=== PATIENT | female | born 1950 | race Caucasian/White ===

== ENCOUNTER → 2020-06-19 | Outpatient (CLI) | payer MEDICARE, OTHER ==
--- NOTE | 2020-06-20 09:45 | Diagnostic Imaging Report ---
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 TECHNIQUE: Serum blood glucose level at the time of injection is 98 mg/dL. Patient was administered 13.8 mCi F-18 FDG intravenously in the left antecubital location and PET imaging was performed from the top of skull to mid thighs. Noncontrast CT was also performed for attenuation correction and anatomic correlation. COMPARISON: No prior imaging is available for comparison. FINDINGS: There is symmetric activity throughout the brain. Soft tissues of the neck are unremarkable. Specifically, no uptake in the soft tissues of the nose are identified. No mediastinal or hilar hypermetabolism is identified. No pulmonary parenchymal hypermetabolism is identified. There appears to be physiologic activity throughout the gastrointestinal and genitourinary tracts of the abdomen and pelvis. No suspicious hypermetabolism is identified. IMPRESSION: Unremarkable PET/CT study. No suspicious regions of hypermetabolism are identified. Dictated by: Dictated on workstation # [id number]
== END ==
LOC: RAD 09:00
PROVIDERS: ATTEND Otolaryngology Otolaryngology/Facial Plastic Surgery
DX: C4A.31 Merkel cell carcinoma of nose (principal)
CPT/HCPCS: 78815; A9552

== ENCOUNTER → 2021-02-19 | Outpatient (CLI) | payer MEDICARE, OTHER ==
--- NOTE | 2021-02-19 13:09 | Diagnostic Imaging Report ---
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 TECHNIQUE: Serum blood glucose level at the time of injection is 111 mg/dL. Patient was administered 13.8 mCi F-18 FDG intravenously in the left antecubital location and PET imaging was performed from the top of the skull to mid thighs. Noncontrast CT was also performed for attenuation correction and anatomic correlation. COMPARISON: Correlation is made with prior PET/CT study from 06/19/2020. FINDINGS: There is symmetric activity throughout the brain. Soft tissues of the neck are unremarkable. No abnormal activity in the nasal cavity is identified. No mediastinal or hilar hypermetabolism is identified. No pulmonary parenchymal hypermetabolism is identified. There is physiologic activity throughout the GI and tracts of the abdomen and pelvis. 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 There is some increased uptake in the midline low pelvis which appears to correlate with the small bowel loop but no underlying abnormality is seen on the CT correlate. IMPRESSION: Stable PET/CT study when compared with exam from 06/19/2020. No suspicious regions of hypermetabolism are identified. Dictated by: Dictated on workstation # [id number]
== END ==
LOC: RAD 08:15
PROVIDERS: ATTEND Otolaryngology Otolaryngology/Facial Plastic Surgery
DX: C4A.31 Merkel cell carcinoma of nose (principal)
CPT/HCPCS: 78815; A9552

== ENCOUNTER → 2021-07-16 | Outpatient (CLI) | payer MEDICARE ==
--- NOTE | 2021-07-16 11:16 | Diagnostic Imaging Report ---
Right shoulder at 1012h. INDICATION: Shoulder pain 3 views were obtained. There are no prior studies available for comparison. There is no fracture, dislocation or acute bony abnormality evident. There is moderate narrowing of the glenohumeral joint and humeral head does seem slightly elevated with respect to the glenoid than usually seen. This appearance could be secondary to an injury to the rotator cuff. If further imaging is desired, then MRI would be recommended. There is only mild degenerative disease of the coracoclavicular joint. The soft tissues are unremarkable. IMPRESSION: 1. There is no evidence of acute bony abnormality. 2. There are degenerative changes involving the glenohumeral joint and the possibility that there is an injury to the rotator cuff should be considered. Recommendations as above. Dictated by: Dictated on workstation # [id number]
--- NOTE | 2021-07-16 11:17 | Diagnostic Imaging Report ---
Right knee at 1019h. INDICATION: Knee pain 4 views were obtained. There are no prior studies for comparison. There is no fracture, dislocation or acute bony abnormality evident. There is severe degenerative disease involving the medial compartment of the knee joint and fairly severe degenerative disease of the patellofemoral space. The lateral cartilage is well-maintained. The soft tissues are unremarkable. IMPRESSION: 1. There is no evidence of acute bony abnormality. 2. There is degenerative disease involving the knee joint with the medial compartment and the patellofemoral space the most significantly affected. Dictated by: Dictated on workstation # [id number]
== END ==
LOC: ORTHO 09:48
PROVIDERS: ATTEND Orthopaedic Surgery
DX: M19.011 Primary osteoarthritis, right shoulder (principal); M17.11 Unilateral primary osteoarthritis, right knee
CPT/HCPCS: 20610; 73030; 73564; G0463; 99213

== ENCOUNTER → 2021-07-25 | Outpatient (CLI) | payer MEDICARE ==
[~2021-07-25] MED LIST: CATHETER FLUSH 10 ML SYR IV PRN; HOLD METFORMIN - RECEIVED CONTRAST 20 ML VIAL IV SCH; IOHEXOL 350 MG/ML 100 ML (OMNIPAQUE 350) VIAL IV ONE; NS 100 ML (IVPB) BAG IV ONE
[2021-07-25 13:26] LABS: CREATININE SERUM 0.51 MG/DL (0.60-1.30)
--- NOTE | 2021-07-25 15:50 | Diagnostic Imaging Report ---
CLINICAL INDICATION: Follow-up [place] cell cancer of the right naris. Biopsy and radiation treatment x 2 years ago, per patient. EXAM: Axial CT scan of the maxillofacial structures without and with 75 mL of Omnipaque 350 IV contrast IV contrast. Coronal and sagittal reformations were performed. Auto Exposure Controls were utilized during the CT exam to meet ALARA standards for radiation dose reduction. COMPARISON: None. FINDINGS: The nasopharynx, oropharynx, hypopharynx and laryngeal soft tissue structures are unremarkable. There is no lymphadenopathy seen on this exam. There is a small amount of patchy density involving the bilateral perimandibular regions and and malar regions which may be related to edema. There is no adjacent bony abnormality. There is asymmetry of the anterior nasal area with the right side demonstrating some thickening seen on series 14, image 44. Unknown if this is just related to slight rightward nasal septal deviation and encroachment upon the nasal airway in the region versus underlying abnormality. There is no significant measurable lesion seen. The remainder of the nasal cavity and paranasal sinuses shows no evidence of enhancing mass. There is minimal mucosal thickening involving the ethmoid sinus and sphenoid sinus. The orbits and globes show no significant abnormality. Postop changes to the right globe seen which may be related to cataract surgery. Limited visualization of intracranial structures are unremarkable. IMPRESSION: 1: There is asymmetry of the anterior aspect of the nasal cavity in the region of the nose with the right side airway portion narrowed compared to left. Unknown if this related to mild rightward nasal septal deviation versus a soft tissue abnormality or scarring. Direct visualization would better evaluate. 2: There is no definite measurable mass or lymphadenopathy. 3: There is minimal paranasal sinus disease. Dictated by: Dictated on workstation # [id number]
== END ==
LOC: LAB FS 12:35
PROVIDERS: ATTEND Otolaryngology Otolaryngology/Facial Plastic Surgery
DX: Z85.821 Personal history of Merkel cell carcinoma (principal)
CPT/HCPCS: 36415; 70488; 82565; 84520

== ENCOUNTER → 2021-08-19 | Outpatient (CLI) | payer MEDICARE ==
--- NOTE | 2021-08-19 11:41 | Diagnostic Imaging Report ---
PET/CT INDICATION: Steele cell carcinoma right nasal ala. TECHNIQUE: PET/CT imaging was obtained from the base of the skull through the pelvis after the administration of 12.83 mCi of F-18 fluorodeoxyglucose into the left antecubital fossa. Limited CT imaging was utilized for localization and attenuation correction purposes. The low energy CT utilized for attenuation correction is not considered to be of high enough spatial resolution to allow in and of itself a separate anatomical analysis. Patient Height: 5' 1" Patient Weight: 170 Blood glucose 100 The previous PET/CT exam performed on 02/19/2021 failed to show any abnormal hypermetabolic activity to suggest malignancy. On this exam, there is still no area of abnormal uptake to indicate neoplastic disease. Specifically, there is no abnormal uptake involving the nasal cavity or the neck. There is no other hypermetabolic activity identified either. As seen on the prior exam, there is physiologic activity in the brain, the heart, the kidneys, the bowel and the bladder. There is also some increased activity about both shoulder joints. This is similar to the prior study as well and most likely due to degenerative disease. The CT images failed to show any sign of an acute abnormality. IMPRESSION: The appearance of the PET/CT exam is stable when compared to the prior exam. There is still no hypermetabolic activity to suggest the presence of malignancy. Dictated by: Dictated on workstation # [id number]
== END ==
LOC: RAD 08:15
PROVIDERS: ATTEND Otolaryngology Otolaryngology/Facial Plastic Surgery
DX: C4A.31 Merkel cell carcinoma of nose (principal); Z92.3 Personal history of irradiation
CPT/HCPCS: 78815; A9552

== ENCOUNTER → 2021-08-27 | Outpatient (CLI) | payer MEDICARE | LOC: ORTHO 09:23 | PROVIDERS: ATTEND Orthopaedic Surgery | DX: M17.11 Unilateral primary osteoarthritis, right knee (principal) | CPT/HCPCS: 99213 ==

== ENCOUNTER 2021-09-11 10:19 | Outpatient (CLI) | payer MEDICARE ==
[~2021-09-11] VITALS: Ht 152.4 cm; Wt 77.7 kg
[~2021-09-11 10:19] MED LIST changes: -CATHETER FLUSH 10 ML SYR IV PRN; +CYCL10TA25 PO; +DULO30CA3 PO; +ETD200C PO; +GABA-486 PO; -HOLD METFORMIN - RECEIVED CONTRAST 20 ML VIAL IV SCH; +HYDR200T46 PO; -IOHEXOL 350 MG/ML 100 ML (OMNIPAQUE 350) VIAL IV ONE; -NS 100 ML (IVPB) BAG IV ONE; +OMEP-401 PO; +PROP10TA8 PO
== END 2021-09-12 16:29 | disposition home or self-care (01) ==
LOC: PREOP 10:19
PROVIDERS: ATTEND Orthopaedic Surgery
DX: Z01.818 Encounter for other preprocedural examination (principal)

== ENCOUNTER → 2021-10-31 | Outpatient (CLI) | payer MEDICARE ==
[~2021-10-31] MED LIST changes: +ASPI-1238 PO; +OXC5T PO
--- NOTE | 2021-10-31 10:48 | Diagnostic Imaging Report ---
Indication: Postop right knee. Time of Exam: 9:10 AM Correlation is made with prior exam from 09/16/2021. 2 views right knee again demonstrate postoperative changes of total knee arthroplasty. Prosthetic elements are in good position without fracture or loosening. No joint effusion is identified. Bony structures are intact. IMPRESSION: Stable postop appearance to the right knee. Dictated by: Dictated on workstation # [id number]
== END ==
LOC: ORTHO 09:03
PROVIDERS: ATTEND Orthopaedic Surgery
DX: Z47.89 Encounter for other orthopedic aftercare (principal)
CPT/HCPCS: 20610; 73560

== ENCOUNTER → 2022-02-04 | Outpatient (CLI) | payer MEDICARE | LOC: ORTHO 09:30 | PROVIDERS: ATTEND Orthopaedic Surgery | DX: M19.011 Primary osteoarthritis, right shoulder (principal); E03.9 Hypothyroidism, unspecified | CPT/HCPCS: 99213 ==